=== PATIENT | female | born 1975 | race Caucasian/White ===

== ENCOUNTER → 2018-04-22 | Outpatient (CLI) | payer OTHER ==
[~2018-04-22] MED LIST: NORCO 5-325 TA1 EACH PO
== END ==
LOC: CAT 15:22
DX: Z13.6 Encounter for screening for cardiovascular disorders (principal); E78.00 Pure hypercholesterolemia, unspecified

== ENCOUNTER → 2019-11-27 | Outpatient (CLI) | payer OTHER | LOC: LAB 13:30 | PROVIDERS: ATTEND Nurse Practitioner | DX: Z20.828 Contact with and (suspected) exposure to other viral communicable diseases (principal); R43.9 Unspecified disturbances of smell and taste ==

== ENCOUNTER → 2020-03-01 | Outpatient (CLI) | payer OTHER | LOC: LAB 14:51 | PROVIDERS: ATTEND Nurse Practitioner | DX: Z20.828 Contact with and (suspected) exposure to other viral communicable diseases (principal) ==